=== PATIENT | female | born 1965 | race Caucasian/White ===

== ENCOUNTER → 2020-04-29 08:22 | Outpatient (BNVA) | payer OTHER, SELFPAY | PROVIDERS: Visit Provider Dietitian, Registered | DX: Z76.89 Persons encountering health services in other specified circumstances (principal) ==

== ENCOUNTER → 2020-05-14 08:19 | Outpatient (BNVA) | payer OTHER, SELFPAY | PROVIDERS: PCP Family Medicine; Visit Provider Surgery | DX: E66.9 Obesity, unspecified (principal); Z68.38 Body mass index [BMI] 38.0-38.9, adult; Z71.3 Dietary counseling and surveillance | CPT/HCPCS: 99213 ==

== ENCOUNTER → 2020-06-16 08:14 | Outpatient (BNVA) | payer OTHER, SELFPAY | PROVIDERS: Visit Provider Surgery | DX: Z76.89 Persons encountering health services in other specified circumstances (principal) ==

== ENCOUNTER → 2020-06-27 06:48 | Outpatient (BNVA) | payer OTHER, SELFPAY | PROVIDERS: Visit Provider Surgery | DX: Z76.89 Persons encountering health services in other specified circumstances (principal) ==

== ENCOUNTER → 2020-06-30 09:21 | Outpatient (BNVA) | payer OTHER, SELFPAY | PROVIDERS: Visit Provider Physician Assistant | DX: Z76.89 Persons encountering health services in other specified circumstances (principal) ==

== ENCOUNTER → 2020-07-04 09:40 | Outpatient (BNVA) | payer OTHER, SELFPAY | PROVIDERS: Visit Provider Physician Assistant | DX: Z76.89 Persons encountering health services in other specified circumstances (principal) ==

== ENCOUNTER → 2020-07-08 11:08 | Outpatient (BNVA) | payer OTHER, SELFPAY | PROVIDERS: Visit Provider Physician Assistant | DX: Z76.89 Persons encountering health services in other specified circumstances (principal) ==

== ENCOUNTER → 2020-07-09 09:35 | Outpatient (BNVA) | payer OTHER, SELFPAY | PROVIDERS: Visit Provider Physician Assistant | DX: Z76.89 Persons encountering health services in other specified circumstances (principal) ==

== ENCOUNTER → 2020-07-16 07:39 | Outpatient (BNVA) | payer OTHER, SELFPAY | PROVIDERS: Visit Provider Surgery | DX: Z76.89 Persons encountering health services in other specified circumstances (principal) ==

== ENCOUNTER → 2020-07-23 08:22 | Outpatient (BNVA) | payer OTHER, SELFPAY | PROVIDERS: PCP Family Medicine; Visit Provider Surgery | DX: Z76.89 Persons encountering health services in other specified circumstances (principal) ==

== ENCOUNTER 2020-07-24 10:33 | Outpatient (REF) | payer OTHER, SELFPAY ==
[2020-07-24 12:22] LABS: MANUAL DIFF FLAG NO
[2020-07-24 12:23] LABS: Basophils Percent Auto 0.3 % (0-2); Eosinophils Absolute Auto 0.5 X10*3/uL (0.0-0.4); Eosinophils Percent Auto 5.2 % (0-4); Hematocrit 45.2 % (37-47); Hemoglobin 14.2 g/dl (12.0-16.0); Imm Gran Abs Auto 0.02 X10*3/uL (0.00-0.03); Imm Gran Pct Auto 0.2 % (0.0-0.4); Lymphocytes Absolute Auto 2.9 X10*3/uL (1.2-4.9); Mean Corpuscular HGB Conc 31.4 g/dl (31.0-35.0); Mean Corpuscular Hemoglobin 27.6 pg (27.0-33.0); Mean Corpuscular Volume 87.9 fL (80-98); Mean Platelet Volume 11.1 fL (9.4-12.3); Monocytes Absolute Auto 0.6 X10*3/uL (0.1-1.2); Monocytes Percent Auto 6.8 % (2-11); Neutrophils Absolute Auto 4.8 X10*3/uL (2.0-8.3); Neutrophils Percent Auto 54.5 % (45-73); Platelet Count 258 X10*3/uL (160-400); Red Blood Count 5.14 X10*6/uL (4.20-5.50); Red Cell Distribution Width 14.6 % (11.0-16.0); White Blood Count 8.9 X10*3/uL (4.8-10.8)
[2020-07-24 12:31] LABS: INTERNATIONAL NORM RATIO 0.9 (0.9-1.1); Prothrombin Time 10.9 SEC (10.8-13.0)
[2020-07-24 12:32] LABS: Estimated Average Glucose 117 mg/dL; Hemoglobin A1c % 5.7 %
[2020-07-24 12:33] LABS: Partial Thromboplastin Time 32.1 SEC (24.1-38.0)
[2020-07-24 12:51] LABS: Alanine Aminotransferase 22 U/L (0-31); Albumin Level 3.9 g/dL (3.5-5.0); Alkaline Phosphatase 109 U/L (39-117); Anion Gap 14 (12-20); Aspartate Amino Transferase 15 U/L (5-31); Blood Urea Nitrogen 17 mg/dL (9-16); C Reactive Protein 0.53 mg/dL (< or = 0.50); Calcium 8.7 mg/dL (8.4-10.2); Carbon Dioxide 26 mmol/L (22-29); Chloride 105 mmol/L (96-108); Cholesterol 204 mg/dL; Estimated Glomerular Filt Rate > 60; Glucose Random 91 mg/dL (60-115); HDL Cholesterol 74 mg/dL; LDL Cholesterol Calculated 118 mg/dl; Potassium 4.8 mmol/l (3.3-5.1); Sodium 140 mmol/L (135-145); Total Protein 6.7 g/dL (6.5-8.0); Triglycerides 63 mg/dL
[2020-07-24 13:12] LABS: TSH reflex Free T4 1.36 mIU/mL (0.32-4.0)
[2020-07-25 09:22] LABS: Insulin Level Total 5.5 uIU/mL
== END 2020-07-24 10:34 | disposition home or self-care (01) ==
LOC: HO.LAB 10:33
PROVIDERS: Visit Provider Surgery
DX: K44.9 Diaphragmatic hernia without obstruction or gangrene (principal); K21.9 Gastro-esophageal reflux disease without esophagitis; E78.5 Hyperlipidemia, unspecified; I10 Essential (primary) hypertension; E66.9 Obesity, unspecified; Z68.37 Body mass index [BMI] 37.0-37.9, adult
CPT/HCPCS: 36415; 80053; 80061; 83036; 83525; 84443; 85025; 85610; 85730; 86140

== ENCOUNTER 2020-07-31 08:16 | Inpatient (IN) | payer OTHER, SELFPAY ==
[2020-07-23 14:23] VITALS: BMI 36.6
--- NOTE | 2020-07-28 15:09 | HO.ANESPROP2 ---
Documented by User: Uma Perez 07/29/20 15:00 HPI - Anesthesia Eval Consult details Narrative: 55yo F for Gastrectomy Sleeve PMFSH Past Medical History Medical History Diaphragmatic hernia GERD (gastroesophageal reflux disease) Hyperlipidemia Hypertension Family History Family History Father Liver disease Mother Heart attack Heart disease Brother No problems noted. Brother No problems noted. Brother No problems noted. Brother No problems noted. Sister No problems noted. Sister No problems noted. Sister No problems noted. Sister No problems noted. Sister No problems noted. Sister No problems noted. Sister No problems noted. Son No problems noted. Son No problems noted. Daughter No problems noted. Surgical History Surgical History H/O abdominoplasty Obesity S/P appendectomy Social History Social History Are you a primary critical care nurse specialist to a significant other at home: No Do you presently have visiting nurse or other home services: No Alcohol intake: current Smoking Status: Former smoker Smoking Quit Date: 3 yrs ago Second Hand Smoke Exposure: No Use of substances other than those prescribed or required for medical reasons: No Have you been hit, kicked, punched, or otherwise hurt by someone within the past year? If so, by whom?: No Advance Directives: No Advance Directives Information Provided: No Advance Directives on File: No Recently lost weight without trying: No Meds Allergies Allergy/AdvReac Type Severity Reaction Status Date / Time Morphine Allergy Unknown rash Uncoded 07/23/20 13:16 Home Medications Medication Instructions Recorded Confirmed Type atorvastatin 20 mg tablet 20 mg PO BEDTIME 05/30/20 07/23/20 History lisinopril 20 mg tablet 20 mg PO DAILY 05/30/20 07/23/20 History pantoprazole 40 mg tablet,delayed 40 mg PO DAILY 05/30/20 07/23/20 History release Exam Exam Date and Time: July 28, 2020 1509 Height,Weight and Vital Signs: Height 5 ft 1 in Weight 87.997 kg Pertinent Lab Results Pertinent Lab Results: Laboratory Tests 07/24/20 11:15 Blood Type A Positive Antibody Screen NEGATIVE Laboratory Tests 07/24/20 07/24/20 11:15 11:15 WBC 8.9 Hgb 14.2 Hct 45.2 Plt Count 258 Sodium 140 Potassium 4.8 Chloride 105 Carbon Dioxide 26 BUN 17 H Creatinine 0.78 Narrative Narrative: EKG 03/2020: SB @ 57 with PACs ECHO 03/2020: LVEF 65-70%, LV sys function nml, mild MR, mild TR Assessment and Plan Assessment Anesthesia Assessment: Chart Reviewed Documented by User: Nikko Vásquez MD 07/31/20 11:04 PMFSH Past Medical History Medical History Diaphragmatic hernia GERD (gastroesophageal reflux disease) Hyperlipidemia Hypertension Family History Family History Father Liver disease Mother Heart attack Heart disease Brother No problems noted. Brother No problems noted. Brother No problems noted. Brother No problems noted. Sister No problems noted. Sister No problems noted. Sister No problems noted. Sister No problems noted. Sister No problems noted. Sister No problems noted. Sister No problems noted. Son No problems noted. Son No problems noted. Daughter No problems noted. Surgical History Surgical History H/O abdominoplasty Obesity S/P appendectomy Social History Social History Are you a primary critical care nurse specialist to a significant other at home: No Do you presently have visiting nurse or other home services: No Alcohol intake: current Smoking Status: Former smoker Smoking Quit Date: 3 yrs ago Second Hand Smoke Exposure: No Use of substances other than those prescribed or required for medical reasons: No Have you been hit, kicked, punched, or otherwise hurt by someone within the past year? If so, by whom?: No Advance Directives: No Advance Directives Information Provided: No Advance Directives on File: No Recently lost weight without trying: No Meds Allergies Allergy/AdvReac Type Severity Reaction Status Date / Time Morphine Allergy Unknown rash Uncoded 07/23/20 13:16 Home Medications Medication Instructions Recorded Confirmed Type atorvastatin 20 mg tablet 20 mg PO BEDTIME 05/30/20 07/23/20 History lisinopril 20 mg tablet 20 mg PO DAILY 05/30/20 07/23/20 History pantoprazole 40 mg tablet,delayed 40 mg PO DAILY 05/30/20 07/23/20 History release Exam Airway Mallampati Class: II TM Dist: >3cm Neck ROM: Full Loose/Missing/Broken Teeth: Yes Heart: RRR Lungs: NL Other: AO Assessment and Plan Assessment Anesthesia Assessment: Anesthesia Plan Discussed, PAT Visit and Chart Reviewed Final Anesthetic Review NPO: Yes ASA Class: III Final Preanesthetic Review: No Changes in Pt Med Stat, Meds/Allgs Chart Reviewed, Consent Obtained/Reviewed and Anes Risks/Benef Reviewed Patient Risk: Intermediate Procedure Risk: Intermediate Anesthetic Plan Anesthetic Plan: GA Disposition: Standard PACU
[2020-07-31] VITALS (11 sets, daily range): BP systolic 112–156; BP diastolic 65–86; PULSE 53–99; RESP 12–16; TEMP 36.1–36.5; O2SAT 95–99
--- NOTE | 2020-07-31 07:39 | MHC.SHP ---
Pre-Procedural Eval Section A The patient is an INPATIENT: Yes The History & Physical has been completed within 30 days and I have reviewed it.: Yes Section B Chief Complaint: obesity Details of Present Illness: obesity Relevant Family History (Specify if Yes): No Relevant Social History: None Present Medications: see Short Stay Collaborative assessment Medical History: No relevant PMH History of Previous Operations: No relevant previous surgery Allergies: Allergies Allergy/AdvReac Type Severity Reaction Status Date / Time Morphine Allergy Unknown rash Uncoded 07/23/20 13:16 Review of Systems Sugical H&P ROS: Negative: Constitution, Cardiovascular, Respiratory, Neurological, Psychiatric, Hem-Onc, Allergic/Immunologic, Gastrointestinal, Genitourinary, Musculoskeletal, Integumentary, Endocrine and Eyes/Ears/Nose/Throat Exam Surgical H&P Exam: Normal: HEENT, Normal: Heart, Normal: Lungs, Normal: Extremities, Normal: Abdomen, Normal: Skin and Normal: Neurological Plan Diagnosis/Plan: Unchanged I have reviewed the history and physical and performed a pertinent physical examination on my patient. No changes have occurred unless specified.
[2020-07-31 08:48] LABS: COVID-19 Test Negative (Negative)
[2020-07-31] MEDS: Lactated Ringers 1,000 ML 999 ML IVCONT (09:16)
[2020-07-31] MEDS: Lactated Ringers 1,000 ML 100 ML IVCONT (09:16)
[2020-07-31] MEDS: ceFAZolin Sodium/Dextrose,Iso 2 GM/50 ML PIGGYBACK IV ×2 (09:20→17:22)
--- NOTE | 2020-07-31 14:28 | PM.DS ---
DS: Providers Provider Date of Service: 08/01/20 Date of admission: 07/31/20 08:16 Primary care physician: Unknown Physician DS: Medications Discharge Medications Home Medications: Home Medications Medication Instructions Recorded Confirmed atorvastatin 20 mg tablet 20 mg PO BEDTIME 05/30/20 07/23/20 lisinopril 20 mg tablet 20 mg PO DAILY 05/30/20 07/23/20 pantoprazole 40 mg tablet,delayed 40 mg PO DAILY 05/30/20 07/23/20 release Previous Rx's Medication Instructions Recorded ondansetron HCl 4 mg tablet 4 mg PO Q6H PRN #30 tab 07/16/20 polyethylene glycol 3350 17 gram 17 g PO DAILY #14 ea 07/16/20 oral powder packet sucralfate 100 mg/mL oral 10 ml PO BID #420 ml 07/16/20 suspension DS: Summary Time Spent with Patient Time attestation: ADMITTING DIAGNOSIS: morbid obesity, hiatal hernia,Gerd, hyperlipidemia, HTN DISCHARGE DIAGNOSIS: same, s/p laparoscopic sleeve gastrectomy and repair of hiatal hernia PAST SURGICAL HISTORY: lap appy and abdominoplasty PROCEDURE: upper endoscopy, laparoscopic sleeve gastrectomy DISCHARGE SUMMARY: History of Present Illness: The patient is a 55year-old woman with a BMI of 40.8kg/m2 and associated co-morbidities as described above. The patient had extensive work-up,lost 24 lbs preoperatively and was electively scheduled for laparoscopic, possible open sleeve gastrectomy and gastropexy. Risks and complications of the surgery were discussed with the patient in advance, particularly the possibility of , pulmonary embolism, anastomotic leak, bleeding, bowel injury, GERD, cardiac, renal or pulmonary complications. The patient understood all the risks and was in agreement with the surgical plan. Hospital Course: The patient underwent an uneventful laparoscopic sleeve gastrectomy with gastropexy and repair of hiatal hernia on the day of admission. Postoperatively, the patient was transferred to the surgical floor. The patient was on IV Acetaminophen and IV dilaudid for pain control. Patient was started on bariatric phase 1 diet POD #0. On postoperative day one, the patient was feeling well without nausea, vomiting, fevers, or tachycardia. The patient had some mild incisional pain. The abdomen was soft. On the morning of postoperative day one, the patient was continued on 1 ounce of water or ice every half hour. During the first day, the patient did fairly well, having some incisional pain, but able to ambulate adequately and to tolerate liquids well. Since the patient is doing well, we decided that the patient was ready to be discharged. The patient was given instructions to follow-up with me next week and to call my office for any fever over 101, persistent abdominal pain, nausea, vomiting, GERD, symptoms of DVT such as calf tenderness, or leg swelling, or pulmonary embolism such as chest pain or shortness of breath. The patient was also instructed to drink 40-60 ounces of liquids per day using the 1-ounce cups. The patient was given prescription for Tylenol for pain, Zofran prn for nausea, and pantoprazole and carafate. The patient was encouraged to ambulate and use the incentive spirometer. The patient was allowed to shower, but no baths, and encouraged to stay active at home. All of these instructions were given to the patient personally. All questions were answered and the patient understood all instructions, the instructions were also given to the patient in print. Total time spent providing and/or coordinating discharge services: 30 minutes Discharge coordination time: Greater than 30 minutes Physical Exam Vital Signs: Vital Signs: Last Vital Signs Temp 97.2 F 07/31/20 08:45 Pulse 53 07/31/20 08:45 Resp 16 07/31/20 08:45 BP 112/65 07/31/20 08:45 Pulse Ox 98 07/31/20 08:45 Body Mass Index 36.6 DS: Data Data Completed and Pending Labs on day of discharge: 07/24/20 11:15 Type and Screen Routine 07/31/20 07:40 ceFAZolin Sodium/Dextrose,Iso [Ancef] 2 gm in 50 ml IV PREOP 07/31/20 07:45 Lactated Ringers [Lr] 1,000 ml IVCONT 999 mls/hr 07/31/20 08:10 COVID-19 ID NOW ([facility]) Stat 07/31/20 08:15 Acetaminophen [Ofirmev] 1,000 mg in 100 ml IV PREOP 07/31/20 08:37 Acetaminophen [Ofirmev] 1,000 mg in 100 ml IV As directed 07/31/20 08:54 Ketamine HCl/NS 50 mg IVPUSH .STK-MED ONE Lidocaine HCl 2 % MPF [Xylocaine 2 % MPF] 5 ml .ROUTE .STK-MED ONE Midazolam HCl/PF [Versed] 2 mg .ROUTE .STK-MED ONE Rocuronium [place] [Zemuron] 100 mg IV .STK-MED ONE fentaNYL citrate/PF [Sublimaze] 50 mcg .ROUTE .STK-MED ONE propofoL [Diprivan] 200 mg IVPUSH .STK-MED ONE 07/31/20 09:18 ceFAZolin Sodium/Dextrose,Iso [Ancef] 2 gm in 50 ml .ROUTE As directed 07/31/20 10:58 dexAMETHasone Sod Phosphate/PF [Decadron] 10 mg .ROUTE .STK-MED ONE 07/31/20 11:00 Bupivacaine MPF 0.25 % [Sensorcaine-MPF 0.25% 10 ML] 10 ml .ROUTE .STK-MED ONE Lidocaine HCl 1 % MPF [Xylocaine 1 % MPF] 5 ml .ROUTE .STK-MED ONE 07/31/20 11:37 dexAMETHasone sod phosphate [Decadron] 4 mg .ROUTE .STK-MED ONE ondansetron HCL [Zofran] 4 mg .ROUTE .STK-MED ONE 07/31/20 11:45 Phenylephrine HCL 1,000 mcg IVPUSH .STK-MED ONE 07/31/20 12:28 HYDROmorphone HCl [Dilaudid] 2 mg .ROUTE .STK-MED ONE 07/31/20 14:01 Sugammadex Sodium [Bridion] 200 mg IVPUSH .STK-MED ONE Laboratory Last Values COVID-19 (AJ) Negative (Negative) 07/31/20 08:10 COVID-19 Clin Com See Note 07/31/20 08:10 Blood Type A Positive 07/24/20 11:15 Antibody Screen NEGATIVE 07/24/20 11:15 Discharge Plan Discharge Anticipated Discharge Date/Time: 08/01/20 11:26 Patient Disposition: Home, Self-Care Referrals: Physician,Unknown [Primary Care Provider] - Discharge Medications: Continued pantoprazole 40 mg tablet,delayed release (DR/EC) 40 mg PO DAILY RF: 0 lisinopril 20 mg tablet 20 mg PO DAILY RF: 0 atorvastatin 20 mg tablet 20 mg PO BEDTIME RF: 0 sucralfate 100 mg/mL suspension 10 ml PO BID Qty: 420 RF: 2 ondansetron HCl [Zofran] 4 mg tablet 4 mg PO Q6H PRN (Reason: nausea and vomiting) Qty: 30 RF: 0 Discontinued polyethylene glycol 3350 [Miralax] 17 gram powder in packet 17 g PO DAILY Qty: 14 RF: 0 Discharge Orders: Discharge Order (Routine); Ordered 08/01/20 Ordered By: Nura Mayes Diet: other Activity on Discharge: No heavy lifting Activity Restrictions/Additional Instructions: No tub baths, sex or returning to work until discussed at first post op appointment. No exercise, alcohol, tobacco or illegal drug use. Continue to use incentive spirometer hourly while awake. Walk in home for 5- 10 minutes every 2 hours during the first week. Continue phase 1 diet today and start phase 2 diet tomorrow morning. Follow all instructions in the bariatric handbook and call with any questions. Visit Report Forms: Patient Portal Discharge page Care Plan Goals: weight loss Health Concerns: obesity Plan of Treatment: see discharge instructions
[2020-07-31] MEDS: Famotidine/PF 20 MG/2 ML VIAL IVPUSH ×2 (15:07→21:47)
--- NOTE | 2020-07-31 15:48 | MHC.CM.PN ---
CM attempted to see pt multiple times throughout the day. Pt not n unit.
[2020-07-31] MEDS: Lactated Ringers 1,000 ML 125 ML IVCONT ×2 (17:22→23:18)
[2020-07-31] MEDS: ondansetron HCL 4 MG/2 ML VIAL IVPUSH ×2 (17:22→23:17)
--- NOTE | 2020-07-31 17:35 | PC.NURSE ---
pt arrived to unit via in bed at 1600 pt c/o difficulty breathing, resp 25 stating Icant breathe , VSS , O2 99% on room air , pt appeared very anxious , 2L O2 applied via NC . This rn reassured pt she was breathing ok and encourgaged pt to breathe slower . Pt oob ambulated to BR with 2 assist . Pt back to bed and appeared more comfotable . 1730 pt resting comfortably in bed no further complaints RR 16
--- NOTE | 2020-07-31 17:40 | PM.OP ---
Brief Operative Note Date of Service: 07/31/20 Pre-op diagnosis: Severe obesity and comorbidities (see below for details) Post-op diagnosis: same (Large diaphragmatic hernia and abdominal adhesions) Procedure: INITIAL PATIENT BMI ON PRESENTATION AT OUR OFFICE: 40.77 kg/m2 LAST BMI BEFORE SURGERY: 36.3 kg/m2 COMORBIDITIES: GERD, diaphragmatic hernia, hypertension, hyperlipidemia, asthma, anxiety, DJD, liver steatosis The patient participated in an intensive weekly lifestyle intervention and exercise program during which the patient has lost between the initial office visit and the last preoperative visit 24lbs, or 11.12% of initial actual body weight. The patient met the BMI-criteria for bariatric surgery based on the BMI on initial presentation. The patient should not be penalized for achieving such weight loss because it is not sustainable long-term without surgical intervention and it was achieved in preparation for bariatric surgery under my direction and based on my published research ([email or web address] and [email or web address]) that a 10% preoperative weight loss improves long-term weight loss after surgery and reduces perioperative complications. Insurance carriers such as [facility] have endorsed my recommendations and have included in their policies criteria to include a 10% preoperative weight loss requirement. PROCEDURE: Esophago-gastroscopy, laparoscopic repair of incarcerated diaphragmatic hernia, laparoscopic lysis of adhesions, laparoscopic sleeve gastrectomy and laparoscopic gastropexy INDICATIONS: This is a 55 year-old female who was electively scheduled for laparoscopic, possibly open sleeve gastrectomy. The risks and complications of the procedure were discussed with the patient in advance, particularly the possibility of ; pulmonary embolism; staple line leak; bleeding; GERD; cardiac, pulmonary, or renal complications; as well as long-term problems such as insufficient weight loss, vitamin deficiency, strictures, or ulcers. The patient understood all the risks, and was in agreement to proceed with surgery. DESCRIPTION OF PROCEDURE: After informed consent was obtained from the patient, the patient was given preoperative antibiotics, and was transferred to the operating room. After successful induction of general anesthesia, pneumatic compressive devices were placed on both lower extremities. An upper endoscopy was performed next. The oropharynx and esophagus appeared to be within normal limits. There was a diaphragmatic hernia present of moderate size consistent with the findings of the preoperative upper GI. The stomach was entered. Then after all fluid and air were suctioned and the stomach was fully decompressed, the scope was withdrawn and secured in the mid esophagus. The patient was then prepped and draped in the usual sterile manner, and abdominal access was established at the right upper quadrant with the Yuridia technique. A 12 mm blunt port was inserted, and the abdomen was insufflated with CO2 to a pressure of 15 mmHg. Under direct visualization, additional ports were placed, specifically two 5 mm Versi-step ports to the left upper quadrant, and a 5 mm Versi-Step port to the right upper quadrant. 1% lidocained plan was used to infiltrate all port sites as well as all fascia defects. Using the EndoClose suture passer device, we placed a #1 Polysorb tie across the falciform ligament in order to retract it up against the abdominal wall and prevent injury of the ligament with our instruments during the procedure. There were adhesions in the abdomen from previous open appendectomy involving the omentum and the left anterior abdominal wall. Those were lysed completely with the ultrasonic device. Following that, the patient was placed in a steep reverse Trendelenburg position. An additional 5 mm port was placed to the right flank for the Mediflex retractor that was used to retract the left lobe of the liver. The gastro-esophageal fat pad was opened with the ultrasonic device (Thunderbeat, Olympus) and the anterior esophagus and hiatus were exposed. The angle of His was opened with the ultrasonic device the fundus of the stomach from any diaphragmatic and splenic attachments. I then opened the gastrocolic ligament between the transverse colon and the greater curvature of the stomach with the ultrasonic device to enter the lesser sac and facilitate the ligation of the short gastric vessels. I started at a mid-point along the greater curvature and using the Thunderbeat, all short gastric vessels were divided all the way to the angle of His until the left joellen was completely dissected at its entirety. I then divided the gastro-colic ligament distally to a distance of about 3-4 cm proximal to the esophagus. There were extensive congenital adhesions between the pancreas and posterior gastric wall. Those were lysed completely with the ultrasonic device. Adhesiolysis took approximately 45 min to complete. There was a very large diaphragmatic hernia with approximately 1/3 of the stomach incarcerated in the chest (pictures were obtained). I continued dissecting along the hiatus toward the left joellen and the angle of His. I fully mobilized the fat pad that was incarcerated in the hernia. I then continued by dissecting even further into the posterior retro-esophageal space all the way to the angle of His. I continued to mobilize the esophagus into the mediastinum circumferentially. Extensive dissection of the esophagus into the mediastinum as high as the azygous vein was required to get adequate length of intra-abdominal esophagus. Both vagal nerves were seen and preserved. At that point, I was able to have at least 3 to 5 cm of esophagus into the abdomen. The right joellen was also mobilized completely at its entirety. After I completely mobilized the esophagus from both the left and right joellen and I had a good mobilization of the esophagus circumferentially, I closed the hernia defect with four interrupted #0 Surgidac sutures using the Endo Stitch device, three which were placed posterior to and one anterior to the esophagus. The stomach was then divided transversely with one Endo REGGIE-45 purple and five REGGIE-60 articulating purple loads using the AEON stapler and loads. Every effort was made that the gastric sleeve had a tubular shape and an even caliber throughout. Once the sleeve resection was completed, the staple line of the gastric sleeve was reinforced with Hemoclips. The resected stomach was retrieved without difficulty from the Yuridia port. A gastropexy was then performed in order to prevent postoperative GERD and partial gastric volvulus. Several interrupted 2.0 Surgidac sutures were placed between the sleeve's staple line and the previously divided greater omentum and gastro-colic ligament using the Endo-Stitch device. An upper endoscopy was performed. There was no narrowing at the GE junction. The scope was easily advanced all the way to the pylorus which was clearly visualized. There was no narrowing anywhere and the sleeve's caliber was even throughout. The sleeve's staple line was inspected and there was no evidence of ischemia, bleeding or dehiscence. At that point the gastroscope was withdrawn from the patient?s mouth while we were decompressing the bowel and the stomach from any remaining air. I looked into the lesser sac to see how the sleeve was situating and it was situating well. There was no bleeding from the staple line, spleen, or short gastric vessels. The Mediflex retractor was removed, and the undersurface of the liver was inspected and there was no bleeding. The patient was placed in supine position. I closed the fascial defect of the 12 mm port site with a figure of eight #1 Polysorb suture. Then 100 cc 0.25 % Marcaine plain with 10 mg of Dexamethasone were used to infiltrate the fascial closure as well as all skin incisions. At this point, the abdomen was deflated, all ports were removed under direct vision, and no bleeding was noted from any of the port sites. The skin incisions were irrigated with saline and were closed with 4-0 absorbable monofilament sutures. Steri-Strips and OpSites were used to cover all incisions. The patient was extubated and was transferred in stable condition to the recovery room for further care. I was present and performed all almeida parts of the procedure. Ms. Castrejonson was the workers compensation claims assistant. There were no residents to assist with this case. Bolivar Mayes MD, PhD, FACS Surgeon: Nura Mayes MD Anesthesia: GETA, local and other (TAP block) Learning Technologist: Marce Segovia Estimated blood loss (mL): 10 IV fluids (mL): 3,000 Urine output (mL): 0 (No Madsen to record) Pathology: other (stomach) Condition: stable Disposition: PACU
--- NOTE | 2020-07-31 17:48 | PM.PNGS ---
Subjective Subjective Date of Service: 08/01/20 Interval history: Patient has mild incisional pain. She was able to ambulate and use the incentive spirometer. Physical Exam Vital Signs: Vital Signs: Last Vital Signs Temp 97.7 F 07/31/20 14:25 Pulse 80 07/31/20 15:59 Resp 16 07/31/20 15:59 BP 135/80 07/31/20 15:59 Pulse Ox 95 07/31/20 15:59 Body Mass Index 36.6 GI: Inspection: Yes normal to inspection, Yes incision (clean and intact) and Yes obesity Extrem: Right lower extremity: normal to inspection (no calf tenderess) Left lower extremity: normal to inspection (no calf tenderness) Progress Note: A&P Assessment and plan (1) Obesity: Status: Acute (2) BMI 36.0-36.9,adult: Status: Acute (3) Diaphragmatic hernia: Status: Acute (4) GERD (gastroesophageal reflux disease): Status: Acute (5) Hyperlipidemia: Status: Acute (6) Hypertension: Status: Acute (7) Steatosis, liver: Status: Acute (8) DJD (degenerative joint disease): Status: Acute (9) Anxiety: Status: Acute (10) Intra-abdominal adhesions: Status: Acute (11) Congenital intra-abdominal adhesions: Status: Acute (12) S/P laparoscopic sleeve gastrectomy: Status: Acute Assessment and Plan: 55 year old female was admitted 07/31/2020 with morbid obesity and comorbidities. Problem 1: s/p laparoscopic sleeve gastrectomy, gastropexy and lysis of adhesions Status: Doing well Plan: Check am labs, If OK, will continue phase 1 bariatric diet and discharge later today. (13) S/P repair of paraesophageal hernia: Status: Acute Fall Risk Details Current Medications: Current Medications Generic Name Dose Route Start Last Admin Trade Name Freq PRN Reason Stop Dose Admin Famotidine 20 mg 07/31/20 15:02 07/31/20 15:07 Famotidine/Pf 20 Mg/2 Ml Vial IVPUSH 20 mg BID TARA Administration Hydromorphone HCl 0.25 mg 07/31/20 16:27 Hydromorphone Hcl 0.5 Mg/0.5 Ml Syringe IVPUSH Q4H PRN Pain, Moderate (Pain Scale 4-6 Lactated Ringer's 1,000 mls @ 125 mls/hr 07/31/20 16:27 07/31/20 17:22 Lr IVCONT 125 mls/hr .Q8H TARA Administration Acetaminophen 1,000 mg in 100 mls @ 16.7 mls/hr 07/31/20 16:27 Ofirmev IV .Q6H TARA Lisinopril 20 mg 08/01/20 09:00 Lisinopril 20 Mg Tablet PO DAILY TARA Protocol Metoclopramide HCl 10 mg 07/31/20 16:27 Metoclopramide Hcl 10 Mg/2 Ml Vial IVPUSH Q6H PRN Nausea Ondansetron HCl 4 mg 07/31/20 16:27 07/31/20 17:22 Ondansetron Hcl 4 Mg/2 Ml Vial IVPUSH 4 mg Q8H TARA Administration Sodium Chloride 3 ml 07/31/20 16:27 07/31/20 17:28 0.9 % Sodium Chloride Flush 3 Ml Syringe IVFLUSH Not Given QSHIFT TARA Time Spent With Patient Time: Total time spent is greater than 50% in coordination of care (as documented) at patient's floor/unit and/or counseling patient: Time with patient: less than 15 minutes
[2020-07-31 19:02] LABS: Hemoglobin 13.9 g/dl (12.0-16.0)
[2020-07-31 19:28] LABS: Anion Gap 17 (12-20); Blood Urea Nitrogen 16 mg/dL (9-16); Calcium 8.4 mg/dL (8.4-10.2); Carbon Dioxide 23 mmol/L (22-29); Chloride 102 mmol/L (96-108); Creatinine Clr Calc Pharmacy 73.7; Estimated Glomerular Filt Rate > 60; Glucose Random 151 mg/dL (60-115); Sodium 138 mmol/L (135-145)
[2020-07-31] MEDS: 0.9 % Sodium Chloride Flush 3 ML SYRINGE IVFLUSH (21:47)
[2020-07-31] MEDS: oxyCODONE HCl Immed Release 5 MG TABLET PO (23:08)
[2020-08-01 00:47] VITALS: BP 137/89; PULSE 72; RESP 18; TEMP 36.4; O2SAT 95
[2020-08-01 04:00] VITALS: BP 117/69; PULSE 56; RESP 16; TEMP 36.8; O2SAT 99
[2020-08-01 05:29] LABS: MANUAL DIFF FLAG NO
[2020-08-01 05:32] LABS: Hematocrit 38.3 % (37-47); Hemoglobin 12.3 g/dl (12.0-16.0); Imm Gran Abs Auto 0.03 X10*3/uL (0.00-0.03); Imm Gran Pct Auto 0.2 % (0.0-0.4); Lymphocytes Absolute Auto 1.5 X10*3/uL (1.2-4.9); Mean Corpuscular HGB Conc 32.1 g/dl (31.0-35.0); Mean Corpuscular Hemoglobin 27.6 pg (27.0-33.0); Mean Corpuscular Volume 85.9 fL (80-98); Mean Platelet Volume 10.1 fL (9.4-12.3); Monocytes Absolute Auto 0.9 X10*3/uL (0.1-1.2); Monocytes Percent Auto 6.7 % (2-11); Neutrophils Absolute Auto 10.4 X10*3/uL (2.0-8.3); Neutrophils Percent Auto 81.1 % (45-73); Platelet Count 227 X10*3/uL (160-400); Red Blood Count 4.46 X10*6/uL (4.20-5.50); Red Cell Distribution Width 14.2 % (11.0-16.0); White Blood Count 12.8 X10*3/uL (4.8-10.8)
[2020-08-01 06:06] LABS: Anion Gap 14 (12-20); Blood Urea Nitrogen 11 mg/dL (9-16); Carbon Dioxide 22 mmol/L (22-29); Chloride 104 mmol/L (96-108); Creatinine Clr Calc Pharmacy 87.5; Estimated Glomerular Filt Rate > 60; Glucose Random 129 mg/dL (60-115); Potassium 4.5 mmol/l (3.3-5.1); Sodium 135 mmol/L (135-145)
[2020-08-01 07:03] VITALS: BP 109/61; PULSE 68; RESP 18; TEMP 36.3; O2SAT 95
[2020-08-01] MEDS: Famotidine/PF 20 MG/2 ML VIAL IVPUSH (08:47)
[2020-08-01] MEDS: 0.9 % Sodium Chloride Flush 3 ML SYRINGE IVFLUSH (08:47)
[2020-08-01] MEDS: ondansetron HCL 4 MG/2 ML VIAL IVPUSH (08:49)
[2020-08-01 08:50] VITALS: BP 109/61; PULSE 68
[2020-08-01] MEDS: lisinopriL 20 MG TABLET PO (08:50)
--- NOTE | 2020-08-01 09:11 | MHC.CM.PN ---
PT REPORTS SHE LIVES WITH HER SON AND A 2YO, ADOPTED CHILD. PT REPORTS BEING INDEPENDENT AND DENIES USING ANY IN HOME SERVICES OR DME. PT REPORTS SHE DOES NOT KNOW THE NAME OF HER PCP HE IS NEW TO THE PRACTICE, SHE REPORTS SHE GOES TO THE [id number] IN [place]. PT DID NOT HAVE A HCP BUT COMPLETED ONE TODAY NAMING HER DAUGHTER, JAMAL AGUIRRE ([phone]) AND SON, JAYDEN AGUIRRE ([phone]) HER AGENTS. PT WILL BE DISCHARGED HOME TODAY WITH NO SERVICES SHE WILL SELF ARRANGE TRANSPORTATION
--- NOTE | 2020-08-01 09:43 | HO.POSTANES ---
Post Anesthesia Evaluation Post Anesthesia Evaluation Vital Signs: Vital Signs Temp Pulse Resp BP Pulse Ox 08/01/20 08:50 68 109/61 08/01/20 07:03 97.3 F 68 18 109/61 95 08/01/20 04:00 98.3 F 56 16 117/69 99 08/01/20 00:47 97.5 F 72 18 137/89 95 Anesthesia: General Endotracheal-GETA Mental Status: Awake Pain Control: Satisfactory Nausea/Vomiting: None Hydration: Adequate Anesthesia-Related Issues: No Anes. Related Issues
[2020-08-01 11:04] VITALS: BP 122/83; PULSE 56; RESP 18; TEMP 36.3; O2SAT 97
== END 2020-08-01 12:00 | disposition home or self-care (01) | DRG 403 ==
LOC: HO.SSSA 08:20 → HO.S3 08:34
PROVIDERS: Physician Assistant; Admitting Provider Surgery; Visit Provider Surgery
PROC: 0DB64Z3 Excision of Stomach, Percutaneous Endoscopic Approach, Vertical (ICD-10-PCS; CPT 43845; principal; 2020-07-31 10:10)
DX: E66.01 Morbid (severe) obesity due to excess calories (principal); K76.0 Fatty (change of) liver, not elsewhere classified; K44.0 Diaphragmatic hernia with obstruction, without gangrene; E78.5 Hyperlipidemia, unspecified; J45.909 Unspecified asthma, uncomplicated; K66.0 Peritoneal adhesions (postprocedural) (postinfection); K21.9 Gastro-esophageal reflux disease without esophagitis; F41.9 Anxiety disorder, unspecified; Z20.828 Contact with and (suspected) exposure to other viral communicable diseases; Z68.36 Body mass index [BMI] 36.0-36.9, adult; Z79.899 Other long term (current) drug therapy
CPT/HCPCS: 36415; 80048; 85018; 85025; 86850; 86900; 86901; 87635; 88307; 88342; 99024; A4649; J0131; J0690; J1100; J1170; J2250; J2370; J2405; J3010

== ENCOUNTER → 2020-08-06 12:41 | Outpatient (BNVA) | payer OTHER, SELFPAY | PROVIDERS: Visit Provider Surgery | DX: E66.9 Obesity, unspecified (principal) | CPT/HCPCS: 99212 ==

== ENCOUNTER 2020-08-14 09:40 | Outpatient (REF) | payer OTHER, SELFPAY ==
--- NOTE | 2020-08-14 09:43 | FL_ITS ---
EXAMINATION: FL UPPER GI SERIES CLINICAL INFORMATION: Gastric sleeve and hiatal hernia repair early July. Follow-up. COMPARISON: Upper GI series 04/09/2020 TECHNIQUE: Initial fluoroscopic cpr instructor image obtained. Subsequently, upper GI series is performed using fluoroscopic evaluation in addition to multiple fluoroscopic spot views. The patient is imaged both upright and prone and using 50% dilution Gastrografin with water. Water-soluble contrast used as per request. Fluoroscopy time: 2.0 minutes DAP: 23.40 Gycm2 Fluoroscopic spot images: 21 FINDINGS: Preliminary cpr instructor image shows surgical clips left epigastrium consistent with the recent surgery. No free air. Visualized lung bases clear. There is normal esophageal motility. There is no obstruction, stricture, ulceration, or hernia. Episode spontaneous gastroesophageal reflux noted with patient turning supine and during water siphon test. There are expected postsurgical changes stomach consistent with the gastric sleeve. No outlet obstruction. No ulceration or extravasation. The duodenal bulb and upper jejunal mucosal pattern are unremarkable. FL/FL upper GI w gastrografin IMPRESSION: 1. Gastroesophageal reflux. No hiatal hernia. 2. Postsurgical changes consistent with gastric sleeve. No outlet obstruction or ulceration or extravasation.
[2020-08-14] MEDS: Diatrizoate Meglumine, Sodium 30 ML SOLUTION 90 ML PO (10:26)
== END 2020-08-14 09:41 | disposition home or self-care (01) ==
LOC: HO.XRAY 09:40
PROVIDERS: Visit Provider Surgery
DX: K21.9 Gastro-esophageal reflux disease without esophagitis (principal); E66.9 Obesity, unspecified; Z98.84 Bariatric surgery status; Z87.19 Personal history of other diseases of the digestive system; Z98.890 Other specified postprocedural states
CPT/HCPCS: 74240

== ENCOUNTER → 2020-08-29 09:53 | Outpatient (BNVA) | payer OTHER, SELFPAY | PROVIDERS: Visit Provider Physician Assistant ==

== ENCOUNTER → 2020-09-10 08:08 | Outpatient (BNVA) | payer OTHER, SELFPAY | PROVIDERS: Visit Provider Surgery | DX: E66.9 Obesity, unspecified (principal); I10 Essential (primary) hypertension; Z68.34 Body mass index [BMI] 34.0-34.9, adult | CPT/HCPCS: 99212 ==

== ENCOUNTER → 2020-09-19 09:58 | Outpatient (BNVA) | payer OTHER, SELFPAY | PROVIDERS: Visit Provider Physician Assistant ==

== ENCOUNTER → 2020-10-06 08:39 | Outpatient (BNVA) | payer OTHER, SELFPAY | PROVIDERS: Visit Provider Surgery | DX: E66.9 Obesity, unspecified (principal); Z68.33 Body mass index [BMI] 33.0-33.9, adult; Z71.3 Dietary counseling and surveillance | CPT/HCPCS: 99212 ==

== ENCOUNTER → 2020-10-15 10:11 | Outpatient (BNVA) | payer OTHER, SELFPAY | PROVIDERS: Visit Provider Physician Assistant ==

== ENCOUNTER → 2020-10-23 10:45 | Outpatient (BNVA) | payer OTHER, SELFPAY | PROVIDERS: Visit Provider Surgery ==

== ENCOUNTER → 2020-10-30 08:45 | Outpatient (BNVA) | payer OTHER, SELFPAY | PROVIDERS: Visit Provider Physician Assistant ==

== ENCOUNTER → 2020-11-05 08:08 | Outpatient (BNVA) | payer OTHER, SELFPAY | PROVIDERS: Visit Provider Surgery ==

== ENCOUNTER → 2020-11-27 09:19 | Outpatient (BNVA) | payer OTHER, SELFPAY | PROVIDERS: Visit Provider Physician Assistant ==

== ENCOUNTER → 2020-12-24 08:10 | Outpatient (BNVA) | payer OTHER, SELFPAY | PROVIDERS: Visit Provider Surgery ==

== ENCOUNTER → 2021-02-03 14:13 | Outpatient (BNVA) | payer OTHER, SELFPAY | PROVIDERS: Visit Provider Surgery Vascular Surgery | DX: I83.11 Varicose veins of right lower extremity with inflammation (principal) | CPT/HCPCS: 99202 ==

== ENCOUNTER → 2021-02-26 08:05 | Outpatient (BNVA) | payer OTHER, SELFPAY | PROVIDERS: Visit Provider Physician Assistant ==

== ENCOUNTER 2021-03-02 12:48 | Outpatient (REF) | payer OTHER, SELFPAY ==
--- NOTE | ~2021-03-02 | US_ITS ---
EXAMINATION: BILATERAL LOWER EXTREMITY VENOUS ULTRASOUND (Reflux Exam) CLINICAL INDICATION: This is a 56-year-old female with venous insufficiency and varicose veins. COMPARISON: None. TECHNIQUE: Color flow triplex imaging and compression Doppler was performed to evaluate both the deep and the superficial systems bilaterally. To evaluate the superficial system, the examination was performed in the upright position. Color-flow Doppler ultrasound and compression ultrasound were utilized. In addition, maneuvers were utilized to demonstrate reflux. FINDINGS: 1. DEEP VENOUS ULTRASOUND OF THE RIGHT LOWER EXTREMITY: Common Femoral Vein: Compressible, normal respiratory variation and augmented flow. Femoral vein: Compressible, normal color flow and augmentation. Popliteal Vein: Compressible, normal augmentation. Deep Reflux: There is no evidence of reflux in the deep system in either the common femoral vein or the popliteal vein. . There is no evidence of a Martinez's cyst. 2. SUPERFICIAL ULTRASOUND WITH DOPPLER OF RIGHT LOWER EXTREMITY GREAT SAPHENOUS VEIN: Saphenofemoral junction: 0.8 cm. There is no reflux. Mid thigh: 0.3 cm Above knee: 0.2 cm Below knee: 0.2 cm. There is no reflux at this level and above. Mid calf: 0.2 cm. The reflux time is 1280 ms. Ankle: 0.2 cm. There is no reflux. GSV REFLUX: There is isolated reflux in the mid calf but not at the saphenofemoral junction. DUPLICATED GREAT SAPHENOUS VEIN: There is a 0.3 cm duplicated lateral great saphenous vein without reflux. SMALL SAPHENOUS VEIN: Upper: 0.2 cm Lower: 0.1 cm SSV REFLUX: No evidence of reflux. VEIN OF GIACOMINI: None Imaged. PERFORATORS: There is a 0.2 cm popliteal fossa finisher denture with reflux of 3556 ms. VARICOSITIES: There are 0.3 cm popliteal fossa varicose veins with reflux time of 3524 ms. There is a 0.2 cm proximal calf varicose vein with reflux time of 2124 ms. 3. DEEP VENOUS ULTRASOUND OF THE LEFT LOWER EXTREMITY: Common Femoral Vein: Compressible, normal respiratory variation and augmented flow. Femoral vein: Compressible, normal color flow and augmentation. Popliteal Vein: Compressible, normal augmentation. Deep Reflux: There is no evidence of reflux in the deep system in either the common femoral vein or the popliteal vein. There is no evidence of a Martinez's cyst. 4. SUPERFICIAL ULTRASOUND WITH DOPPLER OF LEFT LOWER EXTREMITY GREAT SAPHENOUS VEIN: Saphenofemoral junction: 0 point cm Mid thigh: 0.4 cm Above knee: Not seen at this level and below. GSV REFLUX: No evidence of reflux. DUPLICATED GREAT SAPHENOUS VEIN: There is a 0.3 cm lateral duplicated great saphenous vein without reflux. SMALL SAPHENOUS VEIN: Upper: 0.3 cm Lower: 0.2 cm SSV REFLUX: No evidence of reflux. VEIN OF GIACOMINI: None Imaged. PERFORATORS: There is a 0.2 cm distal calf finisher denture without reflux. VARICOSITIES: None Imaged US/US venous duplex LE BI IMPRESSION: 1. There are patent bilateral great saphenous veins and small saphenous veins, respectively, without evidence of reflux. In particular, no reflux is seen at the junction. 2. There are 0.3 cm varicose veins in the right popliteal fossa with greater than 3 seconds of reflux.
== END 2021-03-02 12:49 | disposition home or self-care (01) ==
LOC: HO.US 12:48
PROVIDERS: Visit Provider Surgery Vascular Surgery
DX: I83.11 Varicose veins of right lower extremity with inflammation (principal); I83.893 Varicose veins of bilateral lower extremities with other complications
CPT/HCPCS: 93970

== ENCOUNTER → 2021-03-10 09:22 | Outpatient (BNVA) | payer OTHER, SELFPAY | PROVIDERS: Visit Provider Surgery Vascular Surgery | DX: I83.11 Varicose veins of right lower extremity with inflammation (principal) | CPT/HCPCS: 99212 ==

== ENCOUNTER → 2021-03-12 08:59 | Outpatient (BNVA) | payer OTHER, SELFPAY | PROVIDERS: Visit Provider Physician Assistant ==

== ENCOUNTER → 2021-04-13 08:22 | Outpatient (BNVA) | payer OTHER, SELFPAY | PROVIDERS: Visit Provider Surgery ==

== ENCOUNTER → 2021-04-24 10:20 | Outpatient (BNVA) | payer OTHER, SELFPAY | PROVIDERS: Visit Provider Surgery Vascular Surgery | DX: I83.11 Varicose veins of right lower extremity with inflammation (principal) | CPT/HCPCS: 37766 ==

== ENCOUNTER 2021-04-28 10:23 | Outpatient (REF) | payer OTHER, SELFPAY ==
--- NOTE | ~2021-04-28 | FL_ITS ---
EXAMINATION: XR GI SERIES CLINICAL INFORMATION: Difficulty swallowing. COMPARISON: Upper GI exam 08/14/2020. TECHNIQUE: Routine upper GI contrast study was performed in upright and lying position. FINDINGS: Following oral administration of thick barium, there is normal progression of bolus from oral cavity through the pharynx, esophagus and stomach with moderate posterior cervical esophageal wall indentation on oblique view. No intraluminal filling defects seen. On placing patient supine and prone lying the course, caliber and peristalsis of the stomach and the duodenum is normal. There is moderate gastroesophageal reflux without hiatal hernia. The mucosal pattern of stomach and the duodenum is normal. FLUOROSCOPY TIME: 2.2 minutes. DOSE AREA PRODUCT: 21.920 uGy-m2 (microgray-meter squared) FL/FL upper GI series IMPRESSION: Moderate gastroesophageal reflux without hiatal hernia. There is moderate indentation of posterior cervical esophageal wall. This could explain patient's difficulty swallowing solid foods. Correlation with CT of neck can be performed.
== END 2021-04-28 10:24 | disposition home or self-care (01) ==
LOC: HO.XRAY 10:23
PROVIDERS: Visit Provider Surgery
DX: R13.10 Dysphagia, unspecified (principal); Z87.19 Personal history of other diseases of the digestive system; Z98.890 Other specified postprocedural states
CPT/HCPCS: 74240

== ENCOUNTER → 2021-05-12 10:17 | Outpatient (BNVA) | payer OTHER, SELFPAY | PROVIDERS: Visit Provider Surgery Vascular Surgery | DX: I83.11 Varicose veins of right lower extremity with inflammation (principal) | CPT/HCPCS: 99212 ==

== ENCOUNTER → 2021-05-13 08:00 | Outpatient (BNVA) | payer OTHER, SELFPAY | PROVIDERS: Visit Provider Physician Assistant Surgical | DX: E66.3 Overweight (principal); Z68.28 Body mass index [BMI] 28.0-28.9, adult | CPT/HCPCS: 99212 ==

== ENCOUNTER 2021-05-26 10:22 | Outpatient (REF) | payer OTHER, SELFPAY ==
[2021-05-26 10:37] LABS: MANUAL DIFF FLAG NO
[2021-05-26 10:44] LABS: Basophils Percent Auto 0.5 % (0-2); Eosinophils Absolute Auto 0.4 X10*3/uL (0.0-0.4); Eosinophils Percent Auto 5.2 % (0-4); Hematocrit 40.3 % (37.0-47.0); Hemoglobin 13.6 g/dl (12.0-16.0); Imm Gran Abs Auto 0.01 X10*3/uL (0.00-0.03); Imm Gran Pct Auto 0.1 % (0.0-0.4); Lymphocytes Absolute Auto 3.2 X10*3/uL (1.2-4.9); Lymphocytes Percent Auto 41.2 % (20-40); Mean Corpuscular HGB Conc 33.7 g/dl (31.0-35.0); Mean Corpuscular Hemoglobin 30.5 pg (27.0-33.0); Mean Corpuscular Volume 90.4 fL (80.0-98.0); Mean Platelet Volume 10.3 fL (9.4-12.3); Monocytes Absolute Auto 0.6 X10*3/uL (0.1-1.2); Monocytes Percent Auto 7.9 % (2-11); Neutrophils Absolute Auto 3.48 x10*3/uL (2.0-8.3); Neutrophils Percent Auto 45.1 % (45-73); Platelet Count 274 X10*3/uL (160-400); Red Blood Count 4.46 X10*6/uL (4.20-5.50); Red Cell Distribution Width 13.2 % (11.0-16.0); White Blood Count 7.7 X10*3/uL (4.8-10.8)
[2021-05-26 10:58] LABS: Estimated Average Glucose 111 mg/dL; Hemoglobin A1c % 5.5 %
[2021-05-26 11:15] LABS: Alanine Aminotransferase 24 U/L (0-31); Albumin Level 3.8 g/dL (3.5-5.0); Alkaline Phosphatase 90 U/L (39-117); Anion Gap 10 (12-20); Aspartate Amino Transferase 23 U/L (5-31); Bilirubin Total 1.5 mg/dL (0.0-1.0); Blood Urea Nitrogen 21 mg/dL (9-16); C Reactive Protein 0.26 mg/dL (< or = 0.50); Calcium 9.2 mg/dL (8.4-10.2); Carbon Dioxide 34 mmol/L (22-29); Chloride 101 mmol/L (96-108); Cholesterol 177 mg/dL; Estimated Glomerular Filt Rate > 60; Glucose Random 79 mg/dL (60-115); HDL Cholesterol 65 mg/dL; Iron 122 mcg/dL (30-160); LDL Cholesterol Calculated 86 mg/dl; Percent Iron Saturation 37 % (15-50); Potassium 3.4 mmol/L (3.3-5.1); Sodium 142 mmol/L (135-145); Total Iron Binding Capacity 327 mcg/dL (228-428); Total Protein 6.7 g/dL (6.5-8.0); Triglycerides 132 mg/dL; Unsaturated Iron Binding 205 ug/dL
[2021-05-26 11:37] LABS: Ferritin 52 ng/mL (10-250); TSH reflex Free T4 1.86 uIU/mL (0.32-4.0)
[2021-05-26 11:53] LABS: Folate 6.3 ng/mL (> or = 4.0); Vitamin B12 858 pg/mL (200-900)
[2021-05-27 18:42] LABS: Calcium (PTHI) 9.2 mg/dL (8.6-10.4); PTHI 28 pg/mL (14-64)
[2021-05-29 07:46] LABS: Zinc 63 mcg/dL (60-130)
[2021-05-30 00:57] LABS: Vitamin A 66 mcg/dL (38-98)
[2021-06-02 12:25] LABS: Vitamin B1 <6 nmol/L (8-30)
== END 2021-05-26 10:23 | disposition home or self-care (01) ==
LOC: HO.LAB 10:22
PROVIDERS: Visit Provider Physician Assistant Surgical
DX: E66.3 Overweight (principal); Z98.84 Bariatric surgery status
CPT/HCPCS: 36415; 80053; 80061; 82306; 82607; 82728; 82746; 83036; 83540; 83970; 84425; 84443; 84590; 84630; 85025; 86140

== ENCOUNTER → 2021-06-17 07:58 | Outpatient (BNVA) | payer OTHER, SELFPAY | PROVIDERS: Visit Provider Physician Assistant Surgical | DX: I10 Essential (primary) hypertension (principal) ==

== ENCOUNTER 2021-08-14 13:03 | Outpatient (REF) | payer OTHER, SELFPAY ==
[2021-08-20 15:41] LABS: Vitamin B1 33 nmol/L (8-30)
== END 2021-08-14 13:04 | disposition home or self-care (01) ==
LOC: HO.LAB 13:03
PROVIDERS: Visit Provider Physician Assistant Surgical
DX: I10 Essential (primary) hypertension (principal); E53.8 Deficiency of other specified B group vitamins; E66.3 Overweight; Z68.28 Body mass index [BMI] 28.0-28.9, adult
CPT/HCPCS: 36415; 84425; 99212

== ENCOUNTER → 2021-11-11 08:01 | Outpatient (BNVA) | payer OTHER, SELFPAY | PROVIDERS: Visit Provider Physician Assistant Surgical | DX: I10 Essential (primary) hypertension (principal); E53.8 Deficiency of other specified B group vitamins ==